=== PATIENT | female | born 1980 | race Caucasian/White ===

== ENCOUNTER 2020-04-26 11:29 | Emergency (ER) | payer OTHER, SELFPAY ==
[2020-04-26 11:57] VITALS: BP 141/73; PULSE 80; RESP 18; TEMP 37.3; O2SAT 97; BMI 44.9
--- NOTE | 2020-04-26 12:06 | XR_ITS ---
EXAMINATION: XR CHEST CLINICAL INFORMATION: Coughing COMPARISON: 03/25/2019 TECHNIQUE: Frontal view of the chest was obtained. FINDINGS: Rotated positioning. Mild prominence of the cardiac and mediastinal silhouette, likely related to positioning. Low lung volumes. No focal consolidation, effusion, edema or pneumothorax. Multiple old left rib fractures. XR/XR chest 1V IMPRESSION: No evidence of focal consolidation. Multiple old left rib fractures.
--- NOTE | 2020-04-26 12:46 | ED_ITS ---
HPI - URI/Sore Throat General Chief Complaint: Upper Respiratory Symptoms Stated Complaint: sob,was pos covid March Time Seen by Provider: 04/26/20 12:06 Source: patient Mode of arrival: ambulatory Limitations: no limitations History of Present Illness HPI Narrative: Patient presents to the ED for continuous lingering coughing, chills, fever, and body aches since being diagnosed with COVID this past early March. Patient denies any swelling of lower extremity, calf pain, coughing up blood, shortness of breath on inspiration, chest pain on inspiration, increased use of pillows, or dizziness. Patient states in March she had shortness of breath when she was 1st diagnosed, but does not have any shortness of breath or chest pain presently in the ER. Patient states she has history of asthma Related Data Previous Rx's Medication Instructions Recorded benzonatate [Tessalon Perles] 100 mg PO TID PRN #15 cap 04/26/20 prednisone 40 mg PO DAILY #10 tab 04/26/20 Allergies Allergy/AdvReac Type Severity Reaction Status Date / Time Penicillins [PENICILLINS] Allergy Unknown THROAT Verified 04/26/20 12:01 CLOSES Review of Systems Constitutional: Constitutional: Reports as per HPI, Reports no additional constitutional complaints, Reports chills and Reports fever(s) Eyes: Eyes: Reports as per HPI and Reports no additional eye complaints ENT: Reports system reviewed and no additional complaints, except as documented and Reports as per HPI Cardiovascular: Cardiovascular: Reports as per HPI, Reports no additional cardiovascular complaints, Denies chest pain, Denies chest pain at rest, Denies dyspnea on exertion, Denies orthopnea and Denies paroxysmal nocturnal dyspnea Respiratory: Respiratory: Reports as per HPI, Reports no additional respiratory complaints, Reports cough and Denies dyspnea on exertion Gastrointestinal: Gastrointestinal: Reports as per HPI and Reports no additional gastrointestinal complaints Genitourinary: Genitourinary: Reports no additional female genitourinary complaints and Reports as per HPI Musculoskeletal: Musculoskeletal: Reports no additional musculoskeletal complaints and Reports as per HPI Neurologic: Reports system reviewed and no additional complaints, except as documented and Reports as per HPI Psychiatric: Psychiatric: Reports no additional psychiatric complaints and Reports as per HPI [facility] Social History Social History Advance Directives: No Advance Directives Information Provided: No Physical Exam Vital Signs: Vital Signs: Last Vital Signs Temp 99.1 F 12/14/20 11:57 Pulse 80 04/26/20 11:57 Resp 18 04/26/20 11:57 BP 141/73 H 04/26/20 11:57 Pulse Ox 97 04/26/20 11:57 Body Mass Index 44.9 Const: General: cooperative, healthy appearing, comfortable, no acute distress, well developed, alert, awake and Physically active Orientation/con sciousness: patient oriented x3 HENMT: Head: Yes normal to inspection and Yes No palpable skull fracture present Eyes: General: appearance normal, both eyes and all related structures Neck: Neck: Yes normal visual inspection, Yes full ROM, Yes no lymphadenopathy, Yes no meningeal signs, Yes trachea midline, Yes supple and No tender Chest: Chest palpation & inspection: normal inspection of the chest, normal palpation of entire chest wall and no localized rib tenderness Resp: Effort & Inspection: normal respiratory effort, able to speak in complete sentences, normal respiratory pattern, no audible wheezes, no cough, respiratory effort not decreased, no grunting, not labored, no nasal flaring and no paradoxical thoraco-abdom movements Auscultation: clear to auscultation bilaterally, no crackles, no rales, no rhonchi and no wheezes Cardio: Jugular venous distension: no JVD Heart sounds: S1 normal heart sound present and S2 normal heart sound present GI: Inspection: Yes normal to inspection and No abdominal wall ecchymosis Palpation (GI): Soft to palpation, not firm, nontender, no guarding and not rigid : General: No CVA tenderness and Yes no CVA tenderness Back/Spine/Pelvis: Back: no CVA tenderness, No CVA tenderness and No back tenderness Skin: General skin exam: no rashes or lesions noted Neuro: General: patient oriented x3, gait normal, no meningeal signs and CN's II-XI intact bilaterally Cranial nerves: Yes CN's II-XII intact bilaterally Extrem: Other: Lower extremity negative for any swelling, pitting edema, or calf tenderness. Psych: Appearance: grossly normal, well kempt and not disheveled Course Course Course Narrative: Patient not in any respiratory distress. Patient on her cell phone. Patient speaking in full sentences and not using accessory muscles. Patient will have chest x-ray and repeat COVID swab. Not suspecting PE or cardiac etiology. Patient is not hypoxic, tachypneic, or tachycardic. Patietn presently denies any shortness of breath or chest pain. Reevaluation(s) Reevaluation #1: Chest x-ray negative for any pneumonia. 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 Patient states she received prednisone and coughing medication earlier in her COVID diagnosis in March she felt better. Will give patient coughing medication prescription Time: 12:55 MDM - URI/Sore Throat MDM Narrative Medical decision making narrative: Viral syndrome. Discharge Plan Discharge Clinical Impression: Upper respiratory infection, Acute viral syndrome Patient Disposition: Home, Self-Care Instructions: Upper Respiratory Infection (ED), Viral Syndrome (ED) Additional Instructions: Return to the ED immediately for any chest pain, shortness of breath on exertion. Chest pain on inspiration, coughing up blood, swelling of lower extremities, calf pain, intractable fever, weakness, chills, or any other concerning symptoms. Recommend 14 days self-isolation if COVID test come back positive or worsens. Please use your albuterol inhaler at home as needed. Prescriptions: New benzonatate [Tessalon Perles] 100 mg capsule 100 mg PO TID PRN (Reason: coughing) Qty: 15 RF: 0 prednisone 20 mg tablet 40 mg PO DAILY Qty: 10 RF: 0 Referrals: Fortino Overton MD [Physician] - 2 days (Continuous COVID symptoms such as coughing for a month. Repeat COVID testing pending.) Patria Sharma MD [Primary Care Provider] - 2 days (Continuous COVID like symptoms. Chest x-ray negative for pneumonia. Repeat COVID test pending.) Stand Alone Forms: Work/School Release Discharge Date/Time: 04/26/20 13:30 Print Language: Norwegian
== END 2020-04-26 13:30 | disposition home or self-care (01) ==
PROVIDERS: Physician Assistant; Emergency Provider Emergency Medicine; PCP Internal Medicine
DX: J06.9 Acute upper respiratory infection, unspecified (principal); Z20.828 Contact with and (suspected) exposure to other viral communicable diseases; B34.9 Viral infection, unspecified; Z86.19 Personal history of other infectious and parasitic diseases
CPT/HCPCS: 71045; 99283; U0003

== ENCOUNTER → 2020-05-03 14:32 | Outpatient (BNVA) | payer OTHER, SELFPAY | PROVIDERS: PCP Internal Medicine; Visit Provider Internal Medicine | DX: J45.909 Unspecified asthma, uncomplicated (principal); U07.1 COVID-19; R05 Cough; E66.01 Morbid (severe) obesity due to excess calories; G47.33 Obstructive sleep apnea (adult) (pediatric) | CPT/HCPCS: 99202 ==

== ENCOUNTER 2020-08-25 09:52 | Outpatient (REF) | payer OTHER, SELFPAY ==
[2020-08-25 15:16] LABS: CT PCR NOT DETECTED (Not Detect.); NG PCR NOT DETECTED (Not Detect.)
[2020-08-26 08:58] LABS: BV Int Neg Control Negative (Negative); BV Int Pos Control Positive (Positive)
[2020-08-27 20:52] LABS: HPV mRNA E6/E7 rflx Not Detected (Not Detected)
== END 2020-08-25 09:53 | disposition home or self-care (01) ==
LOC: HO.LAB 09:52
PROVIDERS: PCP Internal Medicine; Visit Provider Advanced Practice Midwife
DX: Z01.419 Encounter for gynecological examination (general) (routine) without abnormal findings (principal); Z20.2 Contact with and (suspected) exposure to infections with a predominantly sexual mode of transmission; Z79.899 Other long term (current) drug therapy; Z86.16 Personal history of COVID-19; Z80.3 Family history of malignant neoplasm of breast
CPT/HCPCS: 87480; 87491; 87510; 87591; 87624; 87660; 88142

== ENCOUNTER → 2022-05-10 13:55 | Outpatient (BNVA) | payer OTHER, SELFPAY | PROVIDERS: Visit Provider Advanced Practice Midwife | DX: Z13.89 Encounter for screening for other disorder (principal) ==

== ENCOUNTER 2023-07-11 11:16 | Outpatient (AMB) | payer OTHER, SELFPAY ==
--- NOTE | 2023-07-11 11:26 | MHC.OFFVIS ---
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 Required: No Information Interpreted: non-clinical & clinical Sales Enablement Consultant: Sales Enablement Consultant Present Accompanied by: Self / Same As Patient Allergies Penicillins [PENICILLINS] Allergy (Unknown, Verified 07/11/23 11:30) THROAT CLOSES Medication List - Last Reconciled 07/11/23 by Jessica Terrell CNM albuterol sulfate mg inhalation albuterol sulfate 90 mcg/actuation 2 puffs inhalation Q6H PRN alprazolam (Xanax) 0.5 mg PO BEDTIME PRN cetirizine 10 mg PO DAILY fluticasone propionate 50 mcg/actuation intranasal levonorgestrel (Mirena) intrauterine multivitamin (Daily Multi-Vitamin tablet) 1 tab PO DAILY zolpidem 10 mg PO BEDTIME PRN Is last menstrual period known: No Post menopausal: No Patient : No HPI 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 She wants to make sure she can exchange her Mirena IUD she has not interested in a at this stage of her life. She sees her primary care provider at [place] and is going to be getting her mammogram through her order. 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 She gets follow-up for other health needs and says she does not have any issues with high blood pressure or diabetes she plans to get out more walk more S spring comes [facility] Medical History (Updated 07/11/23 @ 12:21 by Jessica Terrell CNM) KEYONA (obstructive sleep apnea) Morbid obesity COVID-19 Cough Bronchial asthma Surgical History History of cholecystectomy Hx of appendectomy Family History Mother Breast cancer Maternal Grandmother Breast cancer Family/Other Cervical cancer Social History (Updated 07/11/23 @ 11:36 by Rosalina Lei MA) Housing: Apartment Alcohol intake: current Alcohol intake frequency: holidays/special occasions only Alcohol type: beer, wine, hard liquor and other Patient Tobacco Use Status: Never used Tobacco Current occupational status: unemployed Sexual orientation: Straight/Heterosexual Female Reproductive History Menstrual Age of Menarche: 11 Duration of menses: 3-5 days control method: progestin IUCD (Mirena) Total pregnancies: 1 Full term: 1 Number of Living Children: 1 Date of last pap smear: 08/26/20 History of abnormal pap smear: No History of STI: No Physical Exam Vital Signs: Last Vital Signs BP 116/78 07/11/23 11:29 BMI result Body Mass Index 45.6 Const General: healthy appearing, comfortable, no acute distress, well developed and alert Nutritional Appearance: average body habitus and obese Orientation/consciousness: patient oriented x3 Limitations: no limitations HEENT Head: Yes normocephalic Neck Neck: Yes normal visual inspection Chest Chest palpation & inspection: normal inspection of the chest Breast/axilla inspection: normal inspection of the breasts and normal inspection of the axillae Breast/axilla palpation: normal palpation of the breasts and normal palpation of the axillae Resp Effort & Inspection: normal respiratory effort GI Inspection: Yes normal to inspection, No Abdominal wall edema and No distended Palpation (GI): Soft to palpation and nontender Other: Vagina pink and moist cervix multiparous with Mirena IUD strings visible uterus mobile nontender patient has slightly weak tone with Kegel she will practice them at home she declines instructions on paper today. Denies incontinence. General: Yes bladder normal to palpation External Female Exam: normal external appearance and normal appearance of the urethra Speculum Exam - Vagina: normal appearance of the vagina, normal palpation and normal vaginal discharge Speculum Exam - Cervix: normal appearance of the cervix, normal palpation and nontender Bimanual exam- vagina & uterus: normal bimanual exam, normal palpation, uterine size normal, bladder normal to palpation, consistency normal, normal palpation, uterine mobility normal, uterine shape normal, No Cervical tenderness present, non-tender and no cervical motion tenderness Bimanual Exam- Adnexa, other: normal adnexae, no masses, normal and No adnexal tenderness Neuro General: patient oriented x3 Assessment & Plan Assessment & Plan (1) Presence of 52 mg levonorgestrel-releasing intrauterine device (IUD): Comment: Current Mirena was inserted 09/30/2018. Due for replacement this spring patient will be scheduling it. Discussed changing ideas about length of time it can be used patient is very clear she does not want to take the risk of an on intended at this age. Code(s): Z97.5 - Presence of (intrauterine) contraceptive device (2) Family history of breast cancer in first degree relative: Comment: Mother, aunts and many other relatives with breast cancer. Patient states she had BR C testing and was negative in past. Patient did not get mammogram ordered in 2020 and states she will not go, even if it is ordered, this year in 2021. Explored reasons. she does breast self exam. benefits of early detection reviewed. She declines to go for a mammogram at this time --05/10/22. Code(s): Z80.3 - Family history of malignant neoplasm of breast (3) Cervical cancer screening: Comment: 08/25/20 pap= neg, neg hpv. Code(s): Z12.4 - Encounter for screening for malignant neoplasm of cervix (4) Well woman exam with routine gynecological exam: Code(s): Z01.419 - Encounter for gynecological examination (general) (routine) without abnormal findings (5) Morbid obesity: Comment: Did open the subject , I did not want to over burden her too much on this first visit ; states she plans to walk more now that spring is coming.... Code(s): E66.01 - Morbid (severe) obesity due to excess calories Plan -----Discussed in this visit the following: healthy balanced diet, regular and consistent exercise, getting recommended health screens, doing the best she can for her particular health concerns, kegel exercises, pap smear screening and followup recommendations, mammography screening and SBE, normal changes in cycles in her life stage--- .Discussed in general terms the challenges of obesity and challenges for her health and efforts she is engaging in to manage this including dietary changes water intake attention to sleep inclusion of a regular exercise have it and dealing with the may need stressors of life that can contribute to obesity in general. Encouraged her to continue in all have her best efforts. Reviewed Kegel's her tone is slightly weak recommend trying to do them as long and strong as she can. She declined instruction sheet or referral. She will be scheduling mammogram via her primary care providers order.. Reviewed that Mirena currently is being allowed for use for 5 years to deal with abnormal periods and up to 8 years for contraception. She is very clear that she does not wish a geriatric and she may continue with the Mirena until there is no further risk of as that is very important to her plans to replace it soon when she is able and then possibly again in 5 years. Coding Level of Care Code Est Pt Prev Care 40-64y(87805) Diagnoses Presence of 52 mg levonorgestrel-releasing intrauterine device (IUD) Z97.5 Family history of breast cancer in first degree relative Z80.3 Cervical cancer screening Z12.4 Well woman exam with routine gynecological exam Z01.419 Morbid obesity E66.01
[2023-07-11 11:29] VITALS: BP 116/78; BMI 45.6
== END 2023-07-11 12:25 | disposition home or self-care (01) ==
LOC: HO.HWSM 11:16
PROVIDERS: Visit Provider Advanced Practice Midwife
DX: Z01.419 Encounter for gynecological examination (general) (routine) without abnormal findings (principal); E66.01 Morbid (severe) obesity due to excess calories; Z97.5 Presence of (intrauterine) contraceptive device; Z80.3 Family history of malignant neoplasm of breast
CPT/HCPCS: 99396

== ENCOUNTER 2023-07-11 11:16 | Outpatient (REF) | payer OTHER, SELFPAY ==
[2023-07-12 06:12] LABS: CT PCR NOT DETECTED (Not Detect.); NG PCR NOT DETECTED (Not Detect.)
[2023-07-12 15:43] LABS: BV Int Neg Control Negative (Negative); BV Int Pos Control Positive (Positive)
[2023-07-19 03:24] LABS: HPV mRNA E6/E7 rflx Not Detected (Not Detected)
== END 2023-07-11 11:17 | disposition home or self-care (01) ==
LOC: HO.LNP 11:16
PROVIDERS: Visit Provider Advanced Practice Midwife
DX: Z01.419 Encounter for gynecological examination (general) (routine) without abnormal findings (principal); E66.01 Morbid (severe) obesity due to excess calories; Z97.5 Presence of (intrauterine) contraceptive device; Z80.3 Family history of malignant neoplasm of breast; Z79.899 Other long term (current) drug therapy
CPT/HCPCS: 0353U; 87480; 87510; 87624; 87660; 88142; 99396

== ENCOUNTER 2023-07-24 11:49 | Outpatient (AMB) | payer OTHER, SELFPAY ==
[2023-07-24 12:03] VITALS: BP 122/80; BMI 45.6
--- NOTE | 2023-07-24 12:03 | MHC.OFFVIS ---
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 Operator Required: No Information Interpreted: non-clinical & clinical Certified Master Safe Technician: Certified Master Safe Technician Present ([place]) Allergies Penicillins [PENICILLINS] Allergy (Unknown, Verified 07/24/23 12:04) THROAT CLOSES Medication List - Last Reconciled 07/24/23 by Jessica Terrell CNM albuterol sulfate mg inhalation albuterol sulfate 90 mcg/actuation 2 puffs inhalation Q6H PRN alprazolam (Xanax) 0.5 mg PO BEDTIME PRN cetirizine 10 mg PO DAILY fluticasone propionate 50 mcg/actuation intranasal levonorgestrel (Mirena) intrauterine multivitamin (Daily Multi-Vitamin tablet) 1 tab PO DAILY zolpidem 10 mg PO BEDTIME PRN Is last menstrual period known: No Post menopausal: No Patient : No HPI Mirena Exchange HPI Details Patient is here to replace her Mirena IU S this will be her 4th 1 she uses it for control but she also does not want to get her. Back. 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 She has no questions about the replacement procedure. [facility] Medical History KEYONA (obstructive sleep apnea) Morbid obesity COVID-19 Cough Bronchial asthma Surgical History History of cholecystectomy Hx of appendectomy Family History Mother Breast cancer Maternal Grandmother Breast cancer Family/Other Cervical cancer Social History Housing: Apartment Alcohol intake: current Alcohol intake frequency: holidays/special occasions only Alcohol type: beer, wine, hard liquor and other Patient Tobacco Use Status: Never used Tobacco Patient : No Current occupational status: unemployed Sexual orientation: Straight/Heterosexual Female Reproductive History Menstrual Age of Menarche: 11 control method: progestin IUCD Date of last pap smear: 07/12/23 (pending) Physical Exam Vital Signs: Last Vital Signs BP 122/80 07/24/23 12:03 BMI result Body Mass Index 45.6 Office Procedures IUD Insert/Removal Details Details: ---Patient is here for her IUD removal and insertion. Bimanual exam was done. Her uterus is firm, nontender, and appropriate sized, and is midposition to anteverted . The IUD strings were grasped with ring forceps, and as patient coughed the IUD was removed easily with 1 tug. ---The cervix was cleaned with Betadine. Tenaculum was placed on the cervix slowly to minimize cramping. The uterus was sounded slowly and gently she show a measurement of 7 cm. The IUD was removed from its package, after checking identifying information and lot dates and expiration dates and and gently inserted into the os, as per the IUD insertion procedure. The strings were then trimmed to 3-4 centimetres. The tenaculum was removed and gentle pressure applied with a swab, until any bleeding subsided from the tenaculum sites. The speculum was gently removed. The patient sat up. I Reviewed what to expect, and what indications would necessitate a call. Pt to call for fever, untoward pain or cramping. I reviewed any appropriate backup method. Pt to return for recheck as scheduled. [id number]-[id number] Insertion 38431-CRA Removal Procedure code (CPT) selection complete Office Meds Mirena 21 mcg/24 hours (8 yrs) 52 mg intrauterine device Performing Provider: Jessica Terrell CNM Performing Location: [facility] [place] [facility] Administered by: AMIRAH Paul on 07/24/23 12:24 Dose Route Admin Location Dispensed Lot Number Expiration Date [facility] Technician Plant And Maintenance 1 device intrauterine [facility] [place] [facility] 1 device [id number] 06/12/25 [id number] [employer] Results AMB Test Urine AMB Test Urine Negative Last Edit by AMIRAH Paul on 07/24/23 12:25 Assessment & Plan Assessment & Plan (1) Presence of 52 mg levonorgestrel-releasing intrauterine device (IUD): Comment: Current Mirena was inserted 09/30/2018. Due for replacement this spring patient will be scheduling it. Discussed changing ideas about length of time it can be used patient is very clear she does not want to take the risk of an on intended at this age. Code(s): Z97.5 - Presence of (intrauterine) contraceptive device (2) Cervical cancer screening: Comment: 08/25/20 pap= neg, neg hpv. Code(s): Z12.4 - Encounter for screening for malignant neoplasm of cervix (3) Encounter for removal and reinsertion of intrauterine contraceptive device (IUD): Comment: Mirena IU D replaced 07/24/2023 this is now her 4th. Code(s): Z30.433 - Encounter for removal and reinsertion of intrauterine contraceptive device Plan Reviewed what to watch for in terms of complications from the insertion and she is to call if she experiences any symptoms of expulsion pain infection untoward bleeding. We will see her in about 6 weeks if making the appointment is challenging it can be rescheduled and does not have to be exactly at 6 weeks she has very a depth checking the strings herself as she has had 3 others before. Her last Pap smear was normal. If she ends up cancelling the appointment and feels that there are no difficulties whatsoever we will see her in 1 year. Orders: Orders AMB HCG Urine Test Today Z32.02 - Encounter for test, result negative AMB IUD Insertion/Removal - Practice Supplied Today Z30.430 - Encounter for insertion of intrauterine contraceptive device Coding Level of Care Code Est Pt Level 3 (11105) Diagnoses Presence of 52 mg levonorgestrel-releasing intrauterine device (IUD) Z97.5 Cervical cancer screening Z12.4 Encounter for removal and reinsertion of intrauterine contraceptive device (IUD) Z30.433 CPT Codes Details - CPT: 20443-NMF Insertion ([id number]) Details - CPT: 14845-BUB Removal ([id number])
== END 2023-07-24 13:35 | disposition home or self-care (01) ==
LOC: HO.HWSM 11:49
PROVIDERS: Visit Provider Advanced Practice Midwife
DX: Z30.433 Encounter for removal and reinsertion of intrauterine contraceptive device (principal)
CPT/HCPCS: 58300; 58301

== ENCOUNTER → 2023-07-24 11:49 | Outpatient (BNVA) | payer OTHER, SELFPAY | PROVIDERS: Visit Provider Advanced Practice Midwife | DX: Z30.433 Encounter for removal and reinsertion of intrauterine contraceptive device (principal); Z12.4 Encounter for screening for malignant neoplasm of cervix | CPT/HCPCS: 58300; 58301; J7298 ==

== ENCOUNTER 2023-08-31 10:29 | Outpatient (REF) | payer OTHER, SELFPAY ==
--- NOTE | ~2023-08-31 | MM_ITS ---
EXAMINATION: MM SCREENING DIGITAL BREAST TOMOSYNTHESIS, BILATERAL CLINICAL INFORMATION: Screening. Asymptomatic. COMPARISON: Mammography: This study is compared with prior exams dating back to 2015. TECHNIQUE: Digital breast tomosynthesis is performed in both the craniocaudal and mediolateral oblique views along with computer-aided detection (CAD). Synthesized 2D images are generated from the tomosynthesis. FINDINGS: There are scattered areas of fibroglandular density (ACR BI-RADS breast composition Category b). There are no significant masses, abnormal calcifications, or other abnormalities. MM/MM tomosynthesis screening BI IMPRESSION: No mammographic evidence of malignancy. ASSESSMENT: BI-RADS BI-RADS 1 - Negative RECOMMENDATION: Routine annual mammography screening. 1 year F/U This examination should not preclude the clinical evaluation of a suspicious palpable abnormality. This patient's information was entered into a reminder system with a target due date for their next mammogram.
== END 2023-08-31 10:30 | disposition home or self-care (01) ==
LOC: HO.MAMMO 10:29
PROVIDERS: PCP Internal Medicine; Visit Provider Internal Medicine
DX: Z12.31 Encounter for screening mammogram for malignant neoplasm of breast (principal)
CPT/HCPCS: 77063; 77067

== ENCOUNTER → 2023-08-31 10:30 | Outpatient (BNV) | payer OTHER, SELFPAY | PROVIDERS: PCP Internal Medicine; Visit Provider Radiology Diagnostic Radiology | DX: Z12.31 Encounter for screening mammogram for malignant neoplasm of breast (principal) | CPT/HCPCS: 77063; 77067 ==